=== PATIENT | male | born 1990 | race Two or more races ===

== ENCOUNTER 2017-10-16 00:26 | Emergency (ER) | payer MEDICAID ==
[~2017-10-16] VITALS: Ht 188 cm; Wt 93.0 kg
[2017-10-16 01:28] LABS: Basophils # (auto) 0.1 uL; Basophils % (auto) 0.7 % (0.0-2.0); Eosinophils # (auto) 0.3 uL; Eosinophils % (auto) 3.8 % (0.0-7.0); Hematocrit 47.5 % (41.0-53.0); Hemoglobin 16.3 g/dL (13.5-17.5); Lymphocytes # (auto) 2.5 uL; Lymphocytes % (auto) 30.8 % (10.0-50.0); Mean Corpuscular Hemoglobin 30.4 pg (28.0-32.0); Mean Corpuscular Hgb Conc. 34.3 g/dL (32.0-36.0); Mean Corpuscular Volume 88.6 fL (80.0-100.0); Mean Platelet Volume 7.6 fL (6.9-10.8); Monocytes # (auto) 1.1 uL; Neutrophils # (auto) 4.3 uL; Neutrophils % (auto) 51.7 % (37.0-80.0); Nucleated Red Blood Cells % 0.2 %; Platelet Count (auto) 247 10^3/uL (140-450); Red Cell Distribution Width 13.4 % (11.8-14.3); White Blood Cell 8.2 10^3/uL (4.4-10.8)
[2017-10-16 01:42] LABS: Albumin 4.1 g/dL (3.4-5.0); BUN/Creatinine Ratio 17.5; Calcium 8.7 mg/dL (8.5-10.1); Potassium 3.9 mmol/L (3.5-5.1)
[2017-10-16 01:45] LABS: Bilirubin, Total 0.6 mg/dL (0.2-1.0)
[2017-10-16 02:00] VITALS: BP 151/104
== END 2017-10-16 02:35 | disposition home or self-care (01) ==
LOC: ER 00:28
DX: S46.311A Strain of muscle, fascia and tendon of triceps, right arm, initial encounter (principal); X58.XXXA Exposure to other specified factors, initial encounter; Y93.89 Activity, other specified; Y92.89 Other specified places as the place of occurrence of the external cause; Y99.8 Other external cause status
CPT/HCPCS: 36415; 73070; 73120; 80053; 85025